=== PATIENT | female | born 1960 | race Hispanic/Latino ===

== ENCOUNTER 2017-12-01 04:30 | Emergency (ER) | payer BC, OTHER ==
[2017-12-01 04:30] VITALS: BMI 40.2
[2017-12-01 04:38] VITALS: BP 139/70; PULSE 75; RESP 18; O2SAT 99
[2017-12-01 04:39] VITALS: TEMP 97.7
--- NOTE | 2017-12-01 04:40 | ED PDOC ---
Arrival/HPI - General Chief Complaint: Female Genitourinary Time Seen by Provider: 12/01/17 04:36 Historian: Patient - History of Present Illness Narrative History of Present Illness (Text): 12/01/17 04:42 A 57 year old female, whose past medical history includes hypertension, presents to the emergency department complaining of urinary retention. Patient reports having similar problem before in June. Visited PMD yesterday and will be seeing urologist today. Patient comes in tonight for evaluation and wants velarde catheter placed. Patient denies any other complaints at this time. PMD: Dr. Gibbs Past Medical History - Provider Review Nursing Documentation Reviewed: Yes - Infectious Disease Hx of Infectious Diseases: None - Tetanus Immunization Tetanus Immunization: Unknown - Cardiac Hx Hypertension: Yes - Pulmonary Hx Respiratory Disorders: Yes Hx Asthma: Yes Hx Pneumonia: Yes - Neurological Hx Neurological Disorder: Yes (GULLAIN BARRE SYNDROME 2015 DIAGNOSED) Hx Dizziness: Yes (VERTIGO) Other/Comment: POLYNEUROPATHY - Renal Hx Renal Disorder: No - Endocrine/Metabolic Hx Hypothyroidism: Yes - Hematological/Oncological Hx Blood Disorders: No - Musculoskeletal/Rheumatological Hx Falls: Yes - Gastrointestinal Hx Gastrointestinal Disorders: Yes (APPENDECTOMY) Hx Diverticulitis: Yes Hx Gall Bladder Disease: Yes (CHOLECYSTECTOMY) Hx Gastroesophageal Reflux: Yes - Psychiatric Hx Psychophysiologic Disorder: Yes Hx Depression: No Hx Emotional Abuse: No Hx Post Traumatic Stress Disorder: Yes Hx Physical Abuse: No Hx Substance Use: No - Surgical History Hx Appendectomy: Yes Hx Cholecystectomy: Yes Hx Orthopedic Surgery: Yes (Rt. rotator cuff) Other/Comment: TONSILLECTOMY,C/S X 2 ,2 CARPAL TUNNEL SURGERY - Anesthesia Hx Anesthesia: Yes Hx Anesthesia Reactions: No - Suicidal Assessment Feels Threatened In Home Enviroment: No Family/Social History - Physician Review Nursing Documentation Reviewed: Yes Family/Social History: No Known Family HX Smoking Status: Never Smoked Hx Alcohol Use: No Hx Substance Use: No Hx Substance Use Treatment: No Allergies/Home Meds Allergies/Adverse Reactions: Allergies codeine Allergy (Verified 04/17/16 21:40) RASH hydromorphone Allergy (Verified 04/17/16 21:40) RASH levofloxacin [From Levaquin] Allergy (Verified 04/17/16 21:40) ITCHING morphine Allergy (Verified 04/17/16 21:40) RASH Opioids - Morphine Analogues Allergy (Verified 04/17/16 21:40) RASH Home Medications: Home Meds Medication Instructions Recorded Confirmed Calcium Carb, Citrate/Vit D3 1 tab PO DAILY 10/09/15 04/17/16 [Calcium + D3 ER Tablet] Cyanocobalamin (Vitamin B-12) 2,500 mcg PO DAILY 10/09/15 04/17/16 [Vitamin B12] Lansoprazole [Prevacid] 30 mg PO DAILY 10/09/15 04/17/16 Levothyroxine [Synthroid] 100 mcg PO DAILY 10/09/15 04/17/16 Magnesium Oxide [Magnesium] 500 mg PO DAILY 10/09/15 04/17/16 Sertraline [Zoloft] 50 mg PO DAILY 10/09/15 04/17/16 Vitc 1000mg 1 tab PO DAILY 10/16/15 04/17/16 Review of Systems - Physician Review All systems were reviewed & negative as marked: Yes - Review of Systems Gastrointestinal: absent: Abdominal Pain Genitourinary Female: Urine Output Changes (urinary retention) Physical Exam Vital Signs Reviewed: Yes Vital Signs Temp Pulse Resp BP Pulse Ox 12/01/17 04:39 97.7 F 12/01/17 04:35 75 18 139/70 99 Blood Pressure: Normal Pulse: Regular Respiratory Rate: Normal Appearance: Positive for: Well-Appearing Pain Distress: None Mental Status: Positive for: Alert and Oriented X 3 - Systems Exam Head: Present: Atraumatic, Normocephalic Pupils: Present: PERRL Extroacular Muscles: Present: EOMI Conjunctiva: Present: Normal Mouth: Present: Moist Mucous Membranes Neck: Present: Normal Range of Motion Respiratory/Chest: Present: Clear to Auscultation, Good Air Exchange. No: Respiratory Distress, Accessory Muscle Use Cardiovascular: Present: Regular Rate and Rhythm, Normal S1, S2. No: Murmurs Abdomen: Present: Normal Bowel Sounds. No: Tenderness, Distention, Peritoneal Signs Genitourinary/Pelvic Exam: Present: Other (distended) Back: Present: Normal Inspection Upper Extremity: Present: Normal Inspection. No: Cyanosis, Edema Lower Extremity: Present: Normal Inspection. No: Edema Neurological: Present: GCS=15, CN II-XII Intact, Speech Normal Skin: Present: Warm, Dry, Normal Color. No: Rashes Psychiatric: Present: Alert, Oriented x 3, Normal Insight, Normal Concentration Medical Decision Making ED Course and Treatment: 12/01/17 04:43 Impression: 57 year old female with urinary retention. Plan: -- Velarde Catheter Placement -- Urinalysis -- Urine Culture -- Reassess and disposition Progress Notes: - Lab Interpretations Lab Results: Lab Results 12/01/17 05:08: Urine Color Yellow, Urine Appearance Clear, Urine pH 6.0, Ur Specific [place] 1.015, Urine Protein Negative, Urine Glucose (UA) Negative, Urine Ketones Negative, Urine Blood Negative, Urine Nitrate Negative, Urine Bilirubin Negative, Urine Urobilinogen 0.2, Ur Leukocyte Esterase Negative - PA / CAT DRIVER / Resident Statement MD/DO has reviewed & agrees with the documentation as recorded. - Scribe Statement The provider has reviewed the documentation as recorded by the Thea Bob Provider Scribe Attestation: All medical record entries made by the Scribe were at my direction and personally dictated by me. I have reviewed the chart and agree that the record accurately reflects my personal performance of the history, physical exam, medical decision making, and the department course for this patient. I have also personally directed, reviewed, and agree with the discharge instructions and disposition. Disposition/Present on Arrival - Present on Arrival Any Indicators Present on Arrival: No History of DVT/PE: No History of Uncontrolled Diabetes: No Urinary Catheter: No History of Decub. Ulcer: No History Surgical Site Infection Following: None - Disposition Have Diagnosis and Disposition been Completed?: Yes Diagnosis: Neurogenic bladder, Urinary retention Disposition: HOME/ ROUTINE Disposition Time: 06:05 Patient Plan: Discharge Patient Problems: Current Active Problems Problem Status Onset Neurogenic bladder Acute Urinary retention Acute Condition: GOOD Discharge Instructions (ExitCare): Neurogenic Bladder, Adult (DC) Additional Instructions: Mrs Valenzuela- I am sorry that you are going through this...... Keep your appointment with your neurologist today. Return to us if any problems.... Best- Dr. Shan Wilcox Referrals: Isamar Gibbs MD [Primary Care Provider] - Follow up with primary Forms: [employer] (Tongan)
[2017-12-01 05:38] LABS: URINE BILIRUBIN NEGATIVE (NEGATIVE); URINE BLOOD NEGATIVE (NEGATIVE); URINE GLUCOSE (UA) NEGATIVE (NEGATIVE); URINE LEUKOCYTE ESTERASE NEGATIVE Leu/uL (NEGATIVE); URINE PROTEIN NEGATIVE mg/dL (<30 mg/dL); URINE UROBILINOGEN 0.2 E.U./dL (<1 E.U./dL)
[2017-12-01 05:48] LABS: URINE APPEARANCE CLEAR (CLEAR); URINE COLOR YELLOW (YELLOW)
== END 2017-12-01 06:29 | disposition home or self-care (01) ==
LOC: ED 04:30
DX: N31.9 Neuromuscular dysfunction of bladder, unspecified (principal); R33.9 Retention of urine, unspecified; I10 Essential (primary) hypertension